=== PATIENT | male | born 1975 | race Caucasian/White ===

== ENCOUNTER 2019-12-07 03:34 | Inpatient (IN) | payer OTHER, SELFPAY ==
--- NOTE | 2019-12-07 04:51 | PDOC.FPRHP ---
- History of Present Illness Chief Complaint: scrotal pain History of Present Illness: Pt is a 44yo male with no PMH who was transferred due to scrotal abscess. States that he first noticed a "small bump" on Sunday near his rectum. By Sunday, pain began and he noticed it had increased in size. On Sunday he ran fever Tmax 102.6F. His pain and the swelling continued to increase to encompass from the rectum to the right groin. Denies N/V, urinary or bowel incontinence, diarrhea. ED Course: Vancomycin, Cefepime - Allergies/Adverse Reactions Allergies Allergy/AdvReac Type Severity Reaction Status Date / Time Penicillins Allergy Verified 12/07/19 06:12 - History PMHx: none PSHx: left tooth abscess, appendectomy FHx: dad- prostate CA, mom-lung CA Social: former smoker, smoked 22 years, quit 8 years ago, drinks alcohol 1- 2x/month, no drug use - Review of Systems General: reports: fever/chills. denies: weight/appetite/sleep changes Eyes: denies: vision changes ENT: denies: nasal congestion, rhinorrhea Respiratory: denies: cough, congestion, shortness of breath Cardiovascular: denies: chest pain, edema Gastrointestinal: denies: nausea, vomiting, diarrhea Genitourinary: denies: incontinence, dysuria Skin: reports: other (erythema of scrotum). denies: rashes, itching Musculoskeletal: denies: pain, tenderness Neurological: denies: numbness, syncope - Vital signs BP: 151/102, HR 96, RR 20, T 97.7F, O2 98% on RA - Physical Exam Constitutional: NAD, awake, alert and oriented HEENT: normocephalic and atraumatic, no scleral icterus, grossly normal vision, grossly normal hearing Neck: supple, FROM Heart: RRR, normal S1/S2, pulses present, no edema Lungs: CTAB, no respiratory distress, good air movement Abdomen: soft, non-tender, bowel sounds present Musculoskeletal: normal structure, normal tone Neurological: no focal deficit -Skin: erythema from perineum to scrotum, warm with fluctuance in perineum -Heme/Lymphatic: right inguinal LAD Psychiatric: normal mood and affect, intact recent and remote memory FMR H&P: A/P - Plan #scrotal abscess -Urology consulted from ED, plan is to go to surgery today -NPO for surgery -Vanc and Cefepime were given in ED, will switch to clindamycin IV Code: Full PCP: GEMMA Soler, but he hasn't been in years Diet: NPO IVF: SL Dispo: Admit inpatient surgical, going to surgery today, LOS>48hours FMR H&P: Upper Level - Plan Date/Time: 12/07/19 6840 Mr Bautista is a 44yo male who presents as a transfer from [place] ED for scrotal/perineal abscess. He noticed a bump in his perineal area on 12/02 which progressively worsened. Yesterday he began running a fever 102.5 and noticed significant scrotal edema. He has been treating himself with Motrin/Tylenol alternating. Denies nausea/vomiting. Dr Torrez, urology, was consulted from the ER. PE: General: NAD CV: RRR no murmur Pulm: CTA b/l Abdomen: Nontender Skin: Scrotal swelling and erythema, fluctuance extending to perineum. inguinal lymphadenopathy A/P: Scrotal abscess -Reportedly febrile however no documented fever. Tachycardic. Urology consulted and pt NPO for surgical drainage. Started on Clindamycin in ED, will continue. Plan for surgery later this afternoon. Admit to surgical floor. I, Rupali Rushing, have evaluated this patient and agree with findings/plan as outlined by internet project manager resident. Pertinent changes/additions are listed here. Addendum - Attending - Attending Attestation Date/Time: 12/07/19 8061 I personally evaluated the patient and discussed the management with Dr. Perze. I agree with the History, Examination, Assessment and Plan documented above with any addition or exceptions noted below.
[2019-12-07] MEDS ORDERED: Acetaminophen 650 MG Suppository PR PRN (05:19)
[2019-12-07] MEDS ORDERED: Ondansetron PF 4 MG/2 ML Vial IVP PRN (05:19)
[2019-12-07] MEDS ORDERED: Ondansetron ODT 4 MG TAB PO PRN (05:19)
[2019-12-07 06:33] VITALS: BMI 28.5
--- NOTE | 2019-12-07 06:44 | CON ---
DATE OF CONSULTATION: REQUESTING PHYSICIAN: Dr. Vale Chahal, in the emergency department. REASON FOR CONSULTATION: Scrotal abscess. HISTORY OF PRESENT ILLNESS: Mr. Bautista is a 44-year-old male with no significant past urologic history, who presented as a transfer from [facility] for a right scrotal abscess. The patient reports noticing a small bump in his perineal area close to his rectum earlier this week. This area increased in size and he began developing significant scrotal swelling. He has been febrile several times during this episode, and yesterday he had a fever of 102.6 Fahrenheit. His pain continued to increase, and he presented to [facility] Emergency Department. A CT of the abdomen and pelvis was performed, which demonstrated an area of abscess in the perineum extending up into the scrotum, significant in size and also there are inflammatory changes and stranding extending down toward the rectum. The patient was transferred to the [facility] in [place] for higher level of care. He is currently afebrile. He continues to have significant pain. No voiding complaints. The patient denies history of diabetes. His blood glucose level was elevated in the mid 300s at the time of his admission. He currently does not take any medications regularly. In the emergency department, he was given a dose of IV vancomycin as well as cefepime. He has no other complaints. PAST MEDICAL HISTORY: None. PAST SURGICAL HISTORY: Left tooth abscess and appendectomy. SOCIAL HISTORY: The patient's father has prostate cancer; mother, lung cancer. Otherwise noncontributory. SOCIAL HISTORY: He is a former smoker, has a 30-pack year history, quit eight years ago. Drinks alcohol 1-2 times per month. No illicit drug use. ALLERGIES: PENICILLIN. REVIEW OF SYSTEMS: Full 12-point review of systems was performed and is negative other than that mentioned in HPI. PHYSICAL EXAMINATION: VITAL SIGNS: Temperature 98.2, pulse 110, blood pressure 178/109, respirations 18, oxygen saturation 99% on room air. GENERAL: He is alert and oriented x3, in no apparent distress. HEENT: Normocephalic, atraumatic. NECK: Supple. No masses or lymphadenopathy. CARDIOVASCULAR: Tachycardic, but regular. PULMONARY: Breathing unlabored. ABDOMEN: Soft, nontender/nondistended. No masses or organomegaly. No suprapubic tenderness to palpation. No CVA tenderness. GENITOURINARY: Normal penis without concerning lesion. Significant scrotal swelling and erythema on the right side. Testis is not readily palpable on the right side. Normal testis on the left side. Induration extending from the base of the scrotum down to the perineum and to the right perirectal area. No crepitus. This area is tender to palpation. EXTREMITIES: Warm, well perfused. No edema. NEUROLOGIC: No focal deficits. LABORATORY DATA: White blood cell count 11.0, hemoglobin 15.5, hematocrit 42.7, and platelets 311. Sodium 138, potassium 5.2, chloride 103, bicarb 19, BUN 12, creatinine 0.95. RADIOLOGY DATA: CT of the abdomen and pelvis as stated above. These films were reviewed and agreed with radiologist's interpretation. ASSESSMENT: A 44-year-old male with right scrotal/perineal abscess. PLAN: I reviewed the natural history and clinical implications of abscesses with the patient in detail. There does appear to be an organized fluid collection. There is a tiny focus of air within this. Recommend incision and drainage of this perineal/scrotal abscess. After indications/risks/benefits/alternatives/possible outcomes were discussed with the patient in detail, he elects to proceed. The patient is being admitted by the Family Medicine service. He has been given IV vancomycin, cefepime, n.p.o. until this can be performed later today. Job ID: [id number]
[2019-12-07] MEDS: Clindamycin/D5W 600 MG in Premix Bag 1 BAG IVPB SCH ×3 (06:52→21:54)
[2019-12-07] MEDS ORDERED: Dexamethasone 20 MG/5 ML VIAL ONE (09:15)
[2019-12-07] MEDS ORDERED: PROPOFOL 200 MG/20 ML VIAL ONE (09:15)
[2019-12-07] MEDS ORDERED: Ondansetron PF 4 MG/2 ML Vial ONE (09:15)
[2019-12-07] MEDS ORDERED: Lidocaine 1% PF 5 ML VIAL ONE (09:15)
[2019-12-07] MEDS: Lactated Ringer's 1,000 ML IV SCH ×2 (09:57→18:39)
[2019-12-07] MEDS ORDERED: Fentanyl 100 MCG/2 ML VIAL ONE (15:18)
[2019-12-07 16:13] LABS: SARS-CoV-2 MS2 Positive; SARS-CoV-2 N Gene Negative; SARS-CoV-2 S Gene Negative; SARS-CoV-2 by NAA Not Detected (NotDetected); SARS-CoV-2 orf1ab Negative
[2019-12-07] MEDS ORDERED: Sodium Chloride 0.9% 10 ML ONE (16:20)
[2019-12-07] MEDS ORDERED: Ondansetron HCl/PF 4 MG/2 ML Vial IVP PRN (16:48)
[2019-12-07] MEDS ORDERED: Promethazine HCl 25 MG/ML VIAL IM PRN (16:48)
[2019-12-07] MEDS ORDERED: PACU-Morphine 4MG/ML VIAL SLOW IVP PRN (16:48)
[2019-12-07] MEDS ORDERED: Promethazine HCl 25 MG/ML VIAL SLOW IVP PRN (16:48)
[2019-12-07] MEDS ORDERED: HYDROmorphone 2 MG/ML VIAL SLOW IVP PRN (16:48)
[2019-12-07] MEDS ORDERED: Morphine 4 MG/ML VIAL SLOW IVP PRN (18:40)
[2019-12-07] MEDS: HYDROcodone/Acetaminophen 7.5/325 mg Tablet PO PRN (18:54)
--- NOTE | 2019-12-07 21:49 | OP ---
DATE OF PROCEDURE: 12/07/2019 LIBRARY CIRCULATION ASSISTANT: None. PRE-PROCEDURE DIAGNOSIS: Perineal and scrotal abscess. POSTPROCEDURE DIAGNOSIS: Perineal and scrotal abscess. PROCEDURES PERFORMED: Incision and drainage of perineal/right perirectal abscess. ANESTHESIA: LMA anesthesia. COMPLICATIONS: None. FLUIDS: See anesthesia record. BLOOD LOSS: 20 mL. SPECIMENS: Perineal abscess for anaerobic and aerobic culture. POSTPROCEDURE STATUS: Satisfactory. PACKING: Antibiotic irrigation soaked Kerlix. INDICATIONS FOR PROCEDURE: The patient is a 44-year-old male with history of diabetes. The patient previously was on metformin, however, had no longer been taking this. 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 He presented with a 3-day history of worsening perineal and right scrotal swelling and pain. He has had fever over the past 24 to 48 hours intermittently as well as high as 102.7 Fahrenheit. The patient had a CT of the abdomen and pelvis performed in the emergency department, which demonstrated a right scrotal and perineal abscess extending down towards the perirectal area. On exam, the focus of the abscess was actually in the perineum just anterior to the anus off to the right side. After indications/risks/benefits/alternatives/possible outcomes were discussed with the patient in detail, he elected to proceed with incision and drainage of perineal/scrotal/perirectal abscess and all indicated procedures. DESCRIPTION OF PROCEDURE: The patient was taken to the operating room. After successful induction of LMA anesthesia, he was placed in the dorsal lithotomy position and his genitalia and perineum were prepped and draped in usual sterile fashion. A time-out was performed, following which a 16-[place] Barrios catheter was placed with return of clear yellow urine. This was placed to gravity. There was an area of this abscess that had opened and began draining. This was in the right perineum approximately 1 cm anterior to the anus. We made an incision with a #10 blade scalpel and extended this up over a length of approximately 4 cm. This immediately resulted in evacuation of a significant amount of purulent fluid. Cultures were sent. A hemostat was used to break up all loculations as well as digital exam was used to do the same. Dissection was used also to evacuate what appeared to be various pockets of pus. Antibiotic irrigation was used to copiously irrigate the wound. It extended mostly anteriorly up into the right hemiscrotum external to the tunica vaginalis. This is where the majority of the pus was evacuated. There was some in the right perirectal area as well. A digital rectal exam was performed. There was normal tone. There were no masses within the rectum. Prostate was smooth and normal without nodules. Once all loculations had adequately been lysed, we once again copiously irrigated all areas of the wound with antibiotic irrigation. Hemostasis was achieved using electrocautery. Antibiotic irrigation soaked Kerlix was used to pack the wound. The patient's Barrios catheter was removed. It drained clear yellow urine the entire time and this abscess did not track significantly near the urethra. The patient tolerated the procedure well, was awoken from anesthesia and transferred to PACU in satisfactory condition. PLAN: Wound Care consult has been placed for consideration of wound VAC placement. Job ID: [id number]
[2019-12-08] MEDS: Lactated Ringer's 1,000 ML IV SCH ×3 (00:46→18:22)
[2019-12-08] MEDS: Clindamycin/D5W 600 MG in Premix Bag 1 BAG IVPB SCH ×3 (05:26→21:22)
--- NOTE | 2019-12-08 05:55 | PRG ---
DATE OF SERVICE: 12/08/2019 SUBJECTIVE: The patient overall is feeling well. He has required only one dose of pain medication. He has been afebrile postoperatively. He is voiding without difficulty, has no other complaints. OBJECTIVE: VITAL SIGNS: Temperature 97.6, pulse 89, respirations 18, oxygen saturation 96% on room air, and blood pressure 130/81. GENERAL: He is alert and oriented x3, no apparent distress. CARDIOVASCULAR: Regular rate and rhythm. PULMONARY: Breathing unlabored. ABDOMEN: Soft, nontender/nondistended. GENITOURINARY: Penis is normal. Scrotum with 1+ edema and mild erythema. No fluctuance. There is induration around the perineal wound, which is clean, dry, and intact with Kerlix packing in place. No fluctuance. No purulent drainage. EXTREMITIES: Warm and well perfused. No edema. NEUROLOGIC: No focal deficits. ASSESSMENT: 44-year-old male with perineal/scrotal abscess postop day #1, status post incision and drainage. PLAN: Continue antibiotics. Cultures are pending. Wound care consult has been placed. Consider wound VAC placement. We will discuss with them later today. Job ID: [id number]
--- NOTE | 2019-12-08 06:30 | PDOC.FM ---
- Subjective Subjective: Patient reports improvement of scrotal edema. He required [place] 7.5 x 2 overnight but says he is currently pain free. He denies headache, chest pain, SOB, nausea, and abdominal pain. - Objective MAR Reviewed: Yes Vital Signs & Weight: Vital Signs (12 hours) Temp Pulse Resp BP Pulse Ox 12/08/19 04:40 97.8 F 82 18 127/84 98 12/08/19 00:54 97.6 F 89 18 130/81 96 12/07/19 19:27 98.7 F 100 20 150/91 H 96 12/07/19 18:53 101 H 152/83 H 95 Weight Weight 90.083 kg I&O: 12/06/19 12/07/19 12/08/19 06:59 06:59 06:59 Intake Total 3420 Output Total 3400 Balance 20 Phys Exam - Physical Examination Constitutional: NAD HEENT: moist MMs, sclera anicteric Neck: supple, full ROM Respiratory: no wheezing, clear to auscultation bilateral Cardiovascular: RRR, no significant murmur Gastrointestinal: soft, positive bowel sounds Musculoskeletal: no edema (No lower extremity edema), pulses present Neurological: non-focal, moves all 4 limbs Psychiatric: normal affect, A&O x 3 Skin: no rash Deviation from normal: Scrotal edema, bandage in place Dx/Plan - Plan Plan: Perineal and scrotal abscess s/p I&D Transferred from for scrotal abscess. Dr. Torrez, urology, consulted in ED. Given vanc and cefepime in ED. Underwent I&D on 12/06. -Continue clinda -Tolerating diabetic diet well -[place] 7.5 PRN for pain. Required 2 tabs overnight -F/u cultures -Wound care consulted Hyperglycemia Patient reports elevated BG in past prior to weight loss but has never been diagnosed with DM. -Hemoglobin A1C level -Start metformin 500mg -Hyperglycemia protocol with mild SSI Code: Full PCP: GEMMA Soler, but he hasn't been in years Dispo: Home pending further medical management
[2019-12-08] MEDS: Morphine 2 MG/ML VIAL SLOW IVP PRN (09:26)
[2019-12-08 10:38] LABS: Hemoglobin A1c 12.1 % (4.0-6.0)
[2019-12-08] MEDS ORDERED: Dextrose 50% Abboject 50 ML SYRINGE SLOW IVP PRN (13:14)
[2019-12-08] MEDS ORDERED: Dextrose 5% in Water 1,000 ML IV PRN (13:14)
[2019-12-08] MEDS ORDERED: HumaLOG 300 UNITS/3 ML VIAL SC PRN (13:14)
--- NOTE | 2019-12-08 13:43 | PRG ---
DATE OF SERVICE: 12/08/2019 Mr. Bautista is recovering well from a drained scrotal abscess. He is currently on Cleocin. I read the note of Dr. Britney Taylor and agree with her assessment plan. Job ID: [id number]
[2019-12-08] MEDS: HumaLOG 300 UNITS/3 ML VIAL SC PRN (16:48)
[2019-12-08] MEDS: HYDROcodone/Acetaminophen 7.5/325 mg Tablet PO PRN (16:49)
[2019-12-08] MEDS ORDERED: Insulin Glargine 10 UNITS in Pre-Filled Syringe 1 EACH SC SCH (20:45)
[2019-12-08] MEDS ORDERED: Insulin Regular 300 UNITS/3 ML VIAL SC SCH (20:45)
[2019-12-09] MEDS ORDERED: Insulin Regular 300 UNITS/3 ML VIAL SC SCH (00:15)
[2019-12-09] MEDS: Lactated Ringer's 1,000 ML IV SCH ×4 (00:48→23:30)
[2019-12-09] MEDS: HumaLOG 300 UNITS/3 ML VIAL SC PRN ×4 (05:40→20:22)
[2019-12-09] MEDS: Clindamycin/D5W 600 MG in Premix Bag 1 BAG IVPB SCH ×3 (05:41→21:13)
[2019-12-09] MEDS: Acetaminophen 325 MG TAB PO PRN (05:46)
--- NOTE | 2019-12-09 06:20 | PDOC.FM ---
- Subjective Subjective: Patient reports poor sleep due to frequent nursing checks overnight. He complains of scrotal pain and edema after wound care yesterday afternoon that has improved. He denies headache, lightheadedness, sweating, chest pain, SOB, nausea and abdominal pain. - Objective MAR Reviewed: Yes Vital Signs & Weight: Vital Signs (12 hours) Temp Pulse Resp BP Pulse Ox 12/08/19 19:43 97 12/08/19 19:34 97.7 F 91 20 122/84 97 Weight Admit Weight 90.083 kg Weight 90.083 kg I&O: 12/07/19 12/08/19 12/09/19 06:59 06:59 06:59 Intake Total 3420 3420 Output Total 3400 3300 Balance 20 120 Phys Exam - Physical Examination Constitutional: NAD HEENT: moist MMs, sclera anicteric Neck: supple, full ROM Respiratory: no wheezing, clear to auscultation bilateral Cardiovascular: RRR, no significant murmur Gastrointestinal: soft, positive bowel sounds Musculoskeletal: no edema, pulses present Neurological: non-focal, moves all 4 limbs Psychiatric: normal affect, A&O x 3 Skin: no rash Deviation from normal: Scrotal edema and erythema present, dressing in place Dx/Plan - Plan Plan: Perineal and scrotal abscess s/p I&D Transferred from for scrotal abscess. Dr. Torrez, urology, consulted in ED. Given vanc and cefepime in ED. Underwent I&D on 12/06. -Continue clinda pending culture results -Tolerating diabetic diet well -[place] 7.5 PRN for pain. Required 2 tabs yesterday afternoon with wound care. -F/u Dr. Torrez recs -Wound care consulted Hyperglycemia 2/2 DM2 A1C level 12.1. Received humalog 9 units, glargine 10 units and regular 25 units in past 24 hours. BG 317->408->310->273 -Continue metformin 500mg -Glargine 10 units daily -Hyperglycemia protocol with mild SSI Code: Full PCP: GEMMA Soler, but he hasn't been in years Dispo: Home pending further medical management
[2019-12-09] MEDS ORDERED: Insulin Glargine 10 UNITS in Pre-Filled Syringe 1 EACH SC SCH ×2 (09:00→13:30)
[2019-12-09] MEDS: metFORMIN 500 MG TAB PO SCH (09:27)
[2019-12-09] MEDS: Loratadine 10 MG TAB PO SCH (09:27)
[2019-12-09] MEDS: Insulin Glargine 20 UNITS in Pre-Filled Syringe 1 EACH SC SCH (11:58)
--- NOTE | 2019-12-10 04:50 | PRG ---
DATE OF SERVICE: 12/09/2019 ADDENDUM: Addendum to the note of Dr. Britney Taylor. I have examined Mr. Bautista and agree with the assessment and plan of Dr. Britney Taylor. Job ID: [id number]
[2019-12-10] MEDS: Acetaminophen 325 MG TAB PO PRN ×2 (05:44→12:55)
[2019-12-10] MEDS: Clindamycin/D5W 600 MG in Premix Bag 1 BAG IVPB SCH ×3 (05:44→21:03)
[2019-12-10] MEDS: HumaLOG 300 UNITS/3 ML VIAL SC PRN ×3 (05:45→16:33)
--- NOTE | 2019-12-10 06:01 | PDOC.FM ---
- Subjective Subjective: Patient denies pain overnight. He woke up with a headache that was relieved by Tylenol. He denies vision changes, chest pain, SOB, nausea and abdominal pain. He reports working with the nurse yesterday on insulin administration and feels comfortable completing it on his own. - Objective MAR Reviewed: Yes Vital Signs & Weight: Vital Signs (12 hours) Temp Pulse Resp BP Pulse Ox 12/09/19 19:48 98.3 F 100 18 132/87 97 Weight Admit Weight 90.083 kg Weight 90.083 kg I&O: 12/08/19 12/09/19 12/10/19 06:59 06:59 06:59 Intake Total 3420 5470 Output Total 3400 4950 Balance 20 520 Phys Exam - Physical Examination Constitutional: NAD HEENT: moist MMs, sclera anicteric Neck: supple, full ROM Respiratory: no wheezing, clear to auscultation bilateral Cardiovascular: RRR, no significant murmur Gastrointestinal: soft, positive bowel sounds Musculoskeletal: no edema, pulses present Neurological: non-focal, moves all 4 limbs Psychiatric: normal affect, A&O x 3 Deviation from normal: Scrotal edema, wound vac in place Dx/Plan - Plan Plan: Perineal and scrotal abscess s/p I&D Transferred from for scrotal abscess. Dr. Torrez, urology, consulted in ED. Given vanc and cefepime in ED. Underwent I&D on 12/06. -BCx prelim: GBS -Continue clinda (12/06) -Did not require pain medications overnight -F/u Dr. Torrez recs -Wound care consulted. Will be discharged home with wound vac Hyperglycemia 2/2 DM2 A1C level 12.1. Received humalog 21 units and glargine 20 units in past 24 hours. -Increase metformin to 500mg BID -Increase glargine to 25 units daily -Hyperglycemia protocol with aggressive SSI Code: Full PCP: GEMMA Soler, but he hasn't been in years Dispo: Home with wound vac pending further medical management
[2019-12-10] MEDS: Insulin Glargine 20 UNITS in Pre-Filled Syringe 1 EACH SC SCH (08:21)
[2019-12-10] MEDS: Loratadine 10 MG TAB PO SCH (08:22)
[2019-12-10] MEDS: metFORMIN 500 MG TAB PO SCH ×2 (08:22→16:33)
[2019-12-10] MEDS: Morphine 2 MG/ML VIAL SLOW IVP PRN (09:09)
[2019-12-10] MEDS ORDERED: Insulin Glargine 5 UNITS in Pre-Filled Syringe 1 EACH SC SCH (09:45)
--- NOTE | 2019-12-10 12:20 | PRG ---
DATE OF SERVICE: 12/10/2019 Mr. Bautista is in good spirits this morning. He is having problems with pain during wound VAC changes. We will make sure he is premedicated before these are undertaken. Otherwise, he is ready for discharge probably tomorrow to complete a course of Keflex. Job ID: [id number]
[2019-12-10] MEDS: HYDROcodone/Acetaminophen 7.5/325 mg Tablet PO PRN (16:32)
--- NOTE | 2019-12-10 18:00 | PRG ---
DATE OF SERVICE: 12/10/2019 SUBJECTIVE: The patient is doing well. He is in bed, eating breakfast this morning. No fever or chills. His blood sugars have been somewhat poorly controlled. However, he has been on a sliding scale insulin and is working on self-injection teaching for insulin initiation. He is awaiting approval for a home wound VAC. Moderate pain with wound VAC change. No other complaints. OBJECTIVE: VITAL SIGNS: Temperature 98.3, pulse 100, blood pressure 132/87, respirations 18, oxygen saturation 97% on room air. GENERAL: He is awake and alert, in no apparent distress. CARDIOVASCULAR: Regular rhythm. PULMONARY: Breathing unlabored. ABDOMEN: Soft, nontender/nondistended. GENITOURINARY: Normal penis without concerning lesion. 1+ scrotal edema, some sloughing of skin of anterior scrotum. No erythema, induration, or fluctuance. Wound VAC in place on perineal wound. EXTREMITIES: Warm and well perfused. No edema. LABORATORY DATA: Microbiology growing group B strep. ASSESSMENT: A 44-year-old male with poorly controlled type 2 diabetes, perineal/scrotal abscess, status post incision and drainage and subsequent wound VAC placement. PLAN: The patient is healing well. I agree with continuing a course of oral antibiotics after his discharge. From urologic standpoint, he is stable for discharge with a home wound VAC once this is approved. He can follow up in the [facility] per protocol and with Urology in 2 weeks. Job ID: [id number]
--- NOTE | 2019-12-11 06:13 | PDOC.FM ---
- Subjective Subjective: Patient required [place] 7.5 x 1 and Tylenol 650 x 1 due to residual pain after wound vac change. He has not experienced pain since. He denies headache, lightheadedness, vision changes, chest pain, SOB, nausea and abdominal pain. - Objective MAR Reviewed: Yes Vital Signs & Weight: Vital Signs (12 hours) Temp Pulse Resp BP Pulse Ox 12/10/19 20:00 98.2 F 92 18 136/89 97 Weight Admit Weight 90.083 kg Weight 90.083 kg I&O: 12/09/19 12/10/19 12/11/19 06:59 06:59 06:59 Intake Total 5470 Output Total 4950 Balance 520 Phys Exam - Physical Examination Constitutional: NAD HEENT: moist MMs, sclera anicteric Neck: supple, full ROM Respiratory: no wheezing, clear to auscultation bilateral Cardiovascular: RRR, no significant murmur Gastrointestinal: soft, positive bowel sounds Musculoskeletal: no edema, pulses present Neurological: non-focal, moves all 4 limbs Psychiatric: normal affect, A&O x 3 Deviation from normal: Scrotal edema improved, wound vac in place Dx/Plan - Plan Plan: Perineal and scrotal abscess s/p I&D Transferred from for scrotal abscess. Dr. Torrez, urology, consulted in ED. Given vanc and cefepime in ED. Underwent I&D on 12/06. -BCx prelim: GBS -Continue clinda (12/06). Will dc on Clinda PO 300mg TID for 5 days. -Required [place] 7.5 x 1 and Tylenol 650 x 1 over past 24 hours. -Wound care consulted. Will be discharged home with wound vac -Dr. Torrez: will follow up outpatient in 2 weeks, routine wound care outpatient Hyperglycemia 2/2 DM2 A1C level 12.1. Received humalog 14 units and glargine 25 units in past 24 hours. -Continue metformin 500mg BID -Increase glargine to 30 units daily -Start Humalog 4 units TID with meals -Hyperglycemia protocol Code: Full PCP: GEMMA Soler, but he hasn't been in years Dispo: Home with wound vac pending approval
[2019-12-11] MEDS: HumaLOG 300 UNITS/3 ML VIAL SC PRN (06:18)
[2019-12-11] MEDS: Clindamycin/D5W 600 MG in Premix Bag 1 BAG IVPB SCH ×2 (06:18→14:29)
[2019-12-11 07:34] VITALS: BP 151/93; TEMP 98.3
[2019-12-11] MEDS: Loratadine 10 MG TAB PO SCH (08:10)
[2019-12-11] MEDS: metFORMIN 500 MG TAB PO SCH ×2 (08:10→16:09)
[2019-12-11] MEDS ORDERED: Insulin Glargine 25 UNITS in Pre-Filled Syringe 1 EACH SC SCH (09:00)
[2019-12-11] MEDS ORDERED: Insulin Glargine 5 UNITS in Pre-Filled Syringe 1 EACH SC SCH (10:00)
[2019-12-11] MEDS: HumaLOG 300 UNITS/3 ML VIAL SC SCH ×2 (11:20→16:11)
--- NOTE | 2019-12-11 11:31 | PRG ---
DATE OF SERVICE: 12/11/2019 Mr. Bautista is looking fine this morning and ready for discharge. It is hoped that he will be able to obtain Lantus insulin as his diabetes is obtaining much better control with a regimen of Lantus insulin plus metformin. Job ID: [id number]
[2019-12-11] MEDS: HYDROcodone/Acetaminophen 7.5/325 mg Tablet PO PRN (16:09)
[2019-12-12] MEDS ORDERED: Insulin Glargine 30 UNITS in Pre-Filled Syringe 1 EACH SC SCH (09:00)
--- NOTE | 2019-12-12 14:29 | DIS ---
DATE OF ADMISSION: 12/07/2019 DATE OF DISCHARGE: 12/11/2019 RESIDENT: Britney Taylor MD ADMITTING ATTENDING: Dr. Agustin. DISCHARGE ATTENDING: Dr. Meadows. CONSULT: Dr. Torrez, Urology. PROCEDURE: Incision and drainage of scrotal and perineal abscess on 12/06. PRIMARY DIAGNOSIS: 1. Scrotal and perineal abscess, status post incision and drainage. 2. New diagnosis of type 2 diabetes. SECONDARY DIAGNOSES: None. DISCHARGE MEDICATIONS: 1. Loratadine 10 mg p.o. daily. 2. Clindamycin 300 mg p.o. t.i.d. for 5 days. 3. Metformin 500 mg p.o. b.i.d. 4. Humalog 4 units SC t.i.d. with meals. 5. Glargine 30 units SC q.a.m. DISCONTINUED MEDICATION: None. HISTORY OF PRESENT ILLNESS: The patient is a 44-year-old male with no past medical history, who presented to the [facility] on 12/06 with reports of a scrotal bump. The patient was found to have a scrotal abscess and was transferred to [facility] in [place] for further care. Dr. Torrez, Urology was consulted. The patient underwent incision and drainage of abscess on 12/06. He was placed on clindamycin for antibiotic coverage. Wound Care was consulted and completed wound VAC placement. Scrotal wound healed appropriately. During hospitalization, the patient was noted to be hyperglycemic. A1c was 12.1. The patient was started on metformin 500 mg b.i.d. as well as Lantus and Humalog. The patient's blood glucose level improved and he was deemed stable for discharge home. He was instructed to titrate Lantus dose as indicated to achieve fasting blood glucose level of 140. The patient was instructed to follow up in [address] Torrez. He will also receive wound care outpatient three times a week. He was instructed to select a PCP and follow up within 1 week. Further diabetic management will be discussed at that time. DISPOSITION: Stable. DISCHARGE INSTRUCTIONS: 1. Location: Home with wound care. 2. Diet: Diabetic. 3. Activity: As tolerated. 4. Followup: The patient was instructed to establish with a PCP within one week. Due to cost restrictions, the patient will assess his ability to continue with metformin and insulin care at that time. The patient will also follow up with Dr. Torrez in 2 weeks. He is already established with Wound Care followup outpatient. Job ID: [id number] [facility] CENTERKimberlee
== END 2019-12-11 17:12 | disposition home or self-care (01) | DRG 717 ==
LOC: ERS 03:34 → T4-A 04:55
PROVIDERS: ADMIT Family Medicine; ATTEND Family Medicine
PROC: 0V950ZZ Drainage of Scrotum, Open Approach (ICD-10-PCS; principal; 2019-12-07)
PROC: 0D9P0ZZ Drainage of Rectum, Open Approach (ICD-10-PCS; 2019-12-07)
DX: N49.2 Inflammatory disorders of scrotum (principal); L02.215 Cutaneous abscess of perineum; R51 Headache; Z20.828 Contact with and (suspected) exposure to other viral communicable diseases; E11.65 Type 2 diabetes mellitus with hyperglycemia; Z90.49 Acquired absence of other specified parts of digestive tract; Z88.0 Allergy status to penicillin; Z87.891 Personal history of nicotine dependence
CPT/HCPCS: 36415; 36416; 83036; 87070; 87077; 87186; 87205; 87635; 99285; J1100; J1815; J2270; J2405; J2704; J3010; J3490; U0003

== ENCOUNTER 2019-12-13 10:41 | Emergency (ER) | payer SELFPAY | END 2019-12-13 13:13 | disposition home or self-care (01) | LOC: ERS 10:41 | DX: N49.2 Inflammatory disorders of scrotum (principal); Z48.01 Encounter for change or removal of surgical wound dressing | CPT/HCPCS: 99282 ==